=== PATIENT | female | born 1940 | race Caucasian/White ===

== ENCOUNTER 2017-11-29 07:57 | Day surgery (SDC) | payer MEDICARE, OTHER ==
[~2017-11-29] VITALS: Ht 160 cm; Wt 98.4 kg
[2017-11-29] VITALS (12 sets, daily range): BP systolic 141–170; BP diastolic 75–90
[2017-11-29] MEDS ORDERED: AZIT500T PO (08:35)
[2017-11-29] MEDS ORDERED: ALBU8HFA PO (08:35)
[2017-11-29] MEDS ORDERED: BUDE10.2 INH (08:35)
[2017-11-29] MEDS ORDERED: LIDOcaine 1%/PF 5ML 10 MG/ML VIAL SQ ONE (08:45)
== END 2017-11-29 12:07 | disposition home or self-care (01) ==
LOC: SSTAY O 07:57
PROVIDERS: ATTEND Radiology Diagnostic Radiology
DX: J90 Pleural effusion, not elsewhere classified (principal); Z85.3 Personal history of malignant neoplasm of breast; Z88.2 Allergy status to sulfonamides; Z87.891 Personal history of nicotine dependence; Z87.440 Personal history of urinary (tract) infections; Z87.01 Personal history of pneumonia (recurrent); Z92.21 Personal history of antineoplastic chemotherapy; Z79.2 Long term (current) use of antibiotics; Z72.89 Other problems related to lifestyle; Z98.890 Other specified postprocedural states; Z79.899 Other long term (current) drug therapy
CPT/HCPCS: 32555; 71045; J2001

== ENCOUNTER 2021-04-02 12:21 | Emergency (ER) | payer MEDICARE, OTHER ==
[~2021-04-02] VITALS: Ht 160 cm; Wt 95.5 kg
[~2021-04-02 12:21] MED LIST: ALBU8HFA PO; AZIT500T PO; BUDE10.2 INH
[2021-04-02 12:26] VITALS: BP 208/97
[2021-04-02] MEDS ORDERED: morphine 4 MG/ML inj SYRINge IM ONE (12:40)
--- NOTE | 2021-04-02 12:56 | NUR ---
only 2mg of morphine administered per ed radha khoury verbal order change while in the room about to administer the morphine
[2021-04-02] MEDS ORDERED: cyclobenzaprine 10mg tablet PO ONE (13:30)
[2021-04-02] MEDS ORDERED: CYCL-1 PO (14:30)
[2021-04-02] MEDS ORDERED: ACET-1025 PO (14:30)
== END 2021-04-02 15:00 | disposition home or self-care (01) ==
LOC: ER 12:22
DX: S29.011A Strain of muscle and tendon of front wall of thorax, initial encounter (principal); Z88.2 Allergy status to sulfonamides; Z79.2 Long term (current) use of antibiotics; Z79.899 Other long term (current) drug therapy; X58.XXXA Exposure to other specified factors, initial encounter; Y93.89 Activity, other specified; Y92.89 Other specified places as the place of occurrence of the external cause; Y99.8 Other external cause status
CPT/HCPCS: 93005; 96372; 99283; J2270; 96374